=== PATIENT | male | born 1975 | race Two or more races ===

== ENCOUNTER 2023-09-05 16:10 | Emergency (ER) | payer OTHER ==
[~2023-09-05] VITALS: Ht 167.6 cm; Wt 80.0 kg
[2023-09-05 16:13] VITALS: BP 110/76; PULSE 86; RESP 16; TEMP 97.6; O2SAT 99
== END 2023-09-05 23:12 | disposition home or self-care (01) ==
LOC: ER 16:10 → EDBD 16:10 → ER 23:12
DX: T40.2X1A Poisoning by other opioids, accidental (unintentional), initial encounter (principal); X58.XXXA Exposure to other specified factors, initial encounter
CPT/HCPCS: 82962; 99283